=== PATIENT | female | born 1940 | race American Indian/Alaskan Native ===

== ENCOUNTER 2017-01-23 21:52 | Emergency (ER) | payer SELFPAY ==
--- NOTE | 2017-01-23 22:46 | C.PDOC ---
History Of Present Illness Patient, with a past medical history of hypertension, presents to the ED complaining of generalized weakness, malaise and poor appetite for the past 6 days. Patient states she just returned form [place]. She notes she has "no strength." Patient denies chest pain, palpitations, shortness of breath, nausea , or vomiting. Time Seen by Provider: 01/23/17 22:45 Chief Complaint (Nursing): Weakness/Neurological Deficit History Per: Patient History/Exam Limitations: no limitations Onset/Duration Of Symptoms: Days (6) Current Symptoms Are (Timing): Still Present Activity At Onset Of Symptoms: Other Possible Causative Factor(s): Other (recent travel) Fall Associated With With Symptoms: No Severity: Mild Pain Scale Rating Of: 3 Recent travel outside of the [place]: Yes ([place]) Past Medical History Reviewed: Historical Data, Nursing Documentation, Vital Signs Vital Signs: Last Vital Signs Temp 98.5 F 01/23/17 21:58 Pulse 89 01/23/17 22:46 Resp 20 01/23/17 22:46 BP 148/72 01/23/17 22:46 Pulse Ox 99 01/23/17 23:11 - Medical History PMH: HTN Family History: States: Unknown Family Hx - Social History Hx Alcohol Use: No Hx Substance Use: No - Immunization History Hx Pneumococcal Vaccination: Yes Review Of Systems Constitutional: Positive for: Weakness, Malaise, Other (poor appetite) Cardiovascular: Negative for: Chest Pain, Palpitations Respiratory: Negative for: Shortness of Breath Gastrointestinal: Negative for: Nausea, Vomiting Physical Exam - Physical Exam Appears: Non-toxic, No Acute Distress Skin: Warm, Dry Head: Atraumatic, Normacephalic Eye(s): bilateral: EOMI Oral Mucosa: Moist Neck: Supple Chest: Symmetrical Cardiovascular: Rhythm Regular Respiratory: No Rales, No Rhonchi, No Wheezing, Other (speaking in complete sentences) Gastrointestinal/Abdominal: Bowel Sounds (tympanic to percussion), Soft, No Tenderness, Distention, No Guarding, No Rebound Back: No CVA Tenderness Extremity: Bilateral: Atraumatic Neurological/Psych: Oriented x3, Normal Speech, Normal Motor, Normal Sensation ED Course And Treatment - Laboratory Results Result Diagrams: 01/23/17 22:59 01/23/17 22:59 ECG: Interpreted By Me, Viewed By Me O2 Sat by Pulse Oximetry: 99 (room air) Pulse Ox Interpretation: Normal - Radiology CXR: Interpreted by Me, Viewed By Me CXR Interpretation: Yes: Other (top nl heart). No: Infiltrates, Fracture Progress Note: Plan: VBG, EKG, Labs, Chest x-ray, IV fluids Reevaluation Time: 00:27 Reassessment Condition: Improved Medical Decision Making Medical Decision Making: Upon provider reevaluation patient is feeling better, is medically stable, and requires no further treatment in the ED at this time. Patient will be discharged home with Rx for macrobid. Counseling was provided and all questions were answered regarding diagnosis and need for follow up with the referred clinic. There is agreement to discharge plan. Return if symptoms persist or worsen. Disposition Counseled Patient/Family Regarding: Studies Performed, Diagnosis, Need For Followup, Rx Given - Disposition Referrals: [facility] [Outside] [facility] [Outside] Disposition: HOME/ ROUTINE Disposition Time: 22:46 Condition: FAIR Additional Instructions: Please return if symptoms recur Prescriptions: Nitrofurantoin Macrocrystals [Macrobid] 1 cap PO BID #14 cap Instructions: Urinary Tract Infection in Women (DC), Hypothyroidism (ED) - Clinical Impression Clinical Impression: UTI (urinary tract infection), Hypothyroid - Scribe Statement The provider has reviewed the documentation as recorded by the Scribe Annalise Kennedy Provider Attestation: All medical record entries made by the Scribe were at my direction and personally dictated by me. I have reviewed the chart and agree that the record accurately reflects my personal performance of the history, physical exam, medical decision making, and the department course for this patient. I have also personally directed, reviewed, and agree with the discharge instructions and disposition.
[2017-01-23] MEDS ORDERED: Piperacill/Tazo 3.375gm in Dex 3.375 GM/50 ML BAG IVPB ONE (23:00)
[2017-01-23] MEDS ORDERED: Sodium Chloride 0.9% 1,000 ML IV SCH (23:00)
[2017-01-23 23:03] LABS: BASO # 0.1 K/uL (0.0-0.2); BASO % 0.8 % (0.0-2.0); EOS % 0.3 % (0.0-4.0); HEMATOCRIT 36.7 % (34.0-47.0); LYMPH # 1.6 K/uL (1.0-4.3); LYMPH % 11.6 % (20.0-40.0); MEAN CELL VOLUME 79.5 fL (81.0-99.0); MEAN CORPUSCULAR HEMOGLOBIN 26.5 pg (27.0-31.0); MEAN CORPUSCULAR HGB CONC 33.3 g/dL (33.0-37.0); MEAN PLATELET VOLUME 9.3 fL (7.2-11.7); MONO # 1.1 K/uL (0.0-0.8); MONO % 7.6 % (0.0-10.0); RED CELL DISTRIBUTION WIDTH 14.4 % (11.5-14.5)
[2017-01-23 23:08] VITALS: PULSE 89
[2017-01-23 23:11] LABS: CHLORIDE 95 mmol/L (98-107)
[2017-01-23 23:12] LABS: POTASSIUM 4.1 mmol/L (3.6-5.2); SODIUM 134 mmol/L (132-148)
[2017-01-23 23:14] LABS: ALKALINE PHOSPHATASE 121 U/L (38-126); ALT/SGPT 67 U/L (9-52); AST/SGOT 50 U/L (14-36); BILIRUBIN,TOTAL 0.8 mg/dL (0.2-1.3); BLOOD UREA NITROGEN 13 mg/dL (7-17); CARBON DIOXIDE 27 mmol/L (22-30); GFR AFRICAN-AMERICAN > 60; GLUCOSE,RANDOM 202 mg/dL (65-105); TOTAL PROTEIN 7.4 g/dL (6.3-8.3)
[2017-01-23 23:15] LABS: CALCIUM 8.9 mg/dl (8.6-10.4)
[2017-01-23 23:22] LABS: RBC URINE 6 /hpf (0-3); TRANSITIONAL EPITHIAL < 1 /hpf (0-3); URINE BACTERIA MANY (<OCC); URINE BILIRUBIN NEGATIVE (NEGATIVE); URINE BLOOD 1+ (NEGATIVE); URINE COLOR Amber (YELLOW); URINE GLUCOSE (UA) NORMAL (Normal); URINE HYALINE CAST 0-2 /lpf (0-2); URINE KETONE NEGATIVE (NEGATIVE); URINE LEUKOCYTE ESTERASE 3+ Leu/uL (Negative); URINE PROTEIN 1+ mg/dL (NEGATIVE); URINE UROBILINOGEN NORMAL mg/dL (0.2-1.0); WBC URINE 166 /hpf (0-5)
[2017-01-23 23:25] LABS: VENOUS BLOOD GAS BASE EXCESS 2.5 mmol/L (0.0-2.0); VENOUS BLOOD GAS PCO2 45 mmHg (40-60)
[2017-01-23] MEDS ORDERED: Piperacillin/Tazobact 3.375 gm 100 ML IVPB STA (23:27)
[2017-01-23] MEDS ORDERED: Sodium Chloride 0.9% 1,000 ML ONE (23:31)
[2017-01-23 23:33] LABS: INR 1.1
[2017-01-23 23:46] LABS: THYROID STIMULATING HORMONE 5.01 mIU/L (0.46-4.68)
[2017-01-24 00:39] VITALS: BP 126/62; RESP 16; TEMP 98.2; O2SAT 97
--- NOTE | 2017-01-24 12:05 | RAD ---
PROCEDURE: CHEST RADIOGRAPH, 1 VIEW HISTORY: Shortness of breath COMPARISON: None available. FINDINGS: LUNGS: Elevated right hemidiaphragm. No focal infiltrate or effusion. PLEURA: No pneumothorax or pleural fluid seen. CARDIOVASCULAR: Normal. OSSEOUS STRUCTURES: No significant abnormalities. VISUALIZED UPPER ABDOMEN: Normal. OTHER FINDINGS: None. IMPRESSION: Elevated right hemidiaphragm. No focal infiltrate or effusion.
== END 2017-01-24 00:45 | disposition home or self-care (01) ==
LOC: C.ER 21:52
DX: N39.0 Urinary tract infection, site not specified (principal); E03.9 Hypothyroidism, unspecified
CPT/HCPCS: 71010; 80053; 81001; 82803; 83690; 84443; 85025; 85610; 85730; 87040; 96365; 99285; J2543; J7040